=== PATIENT | female | born 1955 | race Caucasian/White ===

== ENCOUNTER → 2018-01-03 15:59 | Outpatient (CLI) | payer MEDICARE, SELFPAY ==
--- NOTE | 2018-01-03 16:14 | DI.US.S_ITS ---
PROCEDURE: US RENAL COMPLETE INDICATIONS: UTI TECHNIQUE: Real-time scanning was performed of the kidneys and bladder, with image documentation. COMPARISON: None. FINDINGS: Kidneys: Kidneys are normal in size. Right kidney measures 11.8 cm long; left kidney measures 11.0 cm long. Right renal cortical thickness is 1.4 cm; left renal cortical thickness is 1.4 cm. Renal cortical echotexture is normal. No hydronephrosis or nephrolithiasis. No suspicious solid mass lesions. Bladder: Pre-void bladder volume is 61 mL. Post-void residual is zero mL. Pre-void images demonstrate no intraluminal masses or stones. On pre-void images, neither of the ureteral jets are noted with color Doppler interrogation. (Of note, ureteral jets may not be detectable in up to 25% of cases due to insufficient differences in specific gravity between ureteral and bladder urine). Miscellaneous: No free pelvic fluid. IMPRESSION: Unremarkable examination as above. No hydronephrosis. Dictated by: Pino Dickinson M.D. on 01/03/2018 at 17:09 Approved by: Pino Dickinson M.D. on 01/03/2018 at 17:10
== END ==
PROVIDERS: PCP Family Medicine; Visit Provider Urology
DX: N39.0 Urinary tract infection, site not specified (principal)
CPT/HCPCS: 76770

== ENCOUNTER 2021-06-26 04:05 | Emergency (ER) | payer MEDICARE, OTHER, SELFPAY ==
[2021-06-26] VITALS (12 sets, daily range): BP systolic 167–199; BP diastolic 80–101; PULSE 100–129; RESP 14–24; TEMP 36.8; O2SAT 93–100; BMI 40.3
--- NOTE | 2021-06-26 04:07 | ED_ITS ---
HPI - SOB/Dyspnea General Chief Complaint: Shortness of Breath/Dyspnea Stated Complaint: sob today Time Seen by Provider: 06/26/21 04:07 Source: patient Limitations: no limitations History of Present Illness HPI Narrative: This is a 65-year-old female comes emergency department with complaint of waking up from sleep with a fast heartbeat, nausea and feeling short of breath. Patient states she does not really feel lightheaded, no syncope. She denies chest pain or pressure. She does feel short of breath particularly with exertion. She states she felt fine when she went to sleep. She has had a little cough since this started which is nonproductive. She denies any abdominal, back or flank pain. She has had some recent diarrhea frequently. No dysuria urgency or frequency. No new swelling in her extremities. Patient has a history of diabetes and is on metformin as well as Lantus daily and omeprazole. She has a history of breast cancer was treated with chemo radiation initially 20 years ago, had recurrence and had bilateral mastectomy 5 years ago. She does note that she has had your PVCs, PACs or paroxysmal atrial tac hycardia. She states she has been to the ER for it remotely in the past never had any in [place] and that she recalls. 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 but have not required any intervention and had a recent echo. Has had hysterectomy, she has both ovaries present. She has had a anastasiya in her right femur as well as knee replacement. No tobacco, alcohol or illicit. Her primary care is Dr. Ruano in school when and she follows with cardiology there as well. Related Data Previous Rx's Medication Instructions Recorded furosemide 40 mg tablet (Lasix) 40 mg PO DAILY #5 tab 06/26/21 Allergies Allergy/AdvReac Type Severity Reaction Status Date / Time prochlorperazine Allergy Unknown Verified 06/26/21 04:27 [From Compazine] Review of Systems Review of Systems ROS Unobtainable: All systems reviewed & are unremarkable except as noted in HPI and below Patient History Social History Smoking Status: Never smoker Exam Narrative Exam Narrative: GENERAL: Alert and oriented x three, female mild distress HEENT: Head normocephalic, atraumatic, EOMI, pupils reactive, face symmetric, moist mucous membranes NECK: Supple, full range of motion CARDIOVASCULAR: Tachycardic but Regular rate and rhythm without murmurs, rubs or gallops. No JVD. No swelling bilateral lower extremities. RESPIRATORY: Breath sounds equal bilaterally, no wheezes rales or rhonchi. No tachypnea accessory muscle use. Speaks in full sentences. ABDOMEN: Soft, nontender. Normoactive bowel sounds all 4 quadrants. No guarding or rebound, rigidity, no mass : No CVA tenderness EXTREMITIES: Normal range of motion, no clubbing or edema. Neurovascularly intact NEUROLOGICAL: Cranial nerves II through XII grossly intact. Moving all extremities. Normal gait. SKIN: Warm, dry, no petechiae, no rashes or lesions. Initial Vital Signs Initial Vital Signs: Vital Signs Temperature 98.3 F 06/26/21 04:05 Pulse Rate 129 H 06/26/21 04:05 Respiratory Rate 24 06/26/21 04:05 Blood Pressure 188/101 H 06/26/21 04:05 Pulse Oximetry 100 06/26/21 04:05 Scores PERC Score Age greater than or equal to 50 years: Yes Heart rate greater than or equal to 100 bpm: Yes Room Air O2 Sat less than 95%: No Unilateral leg swelling: No Recent trauma or surgery: No Hemoptysis: No Prior PE or DVT: No Hormone Use: No Total PERC Score: 2 Course Orders Ordered: Discontinued Medications Albuterol (Albuterol Hfa Prepack) 1 box MISC SEEINSTR ONE Stop: 06/26/21 06:41 Last Admin: 06/26/21 06:54 Dose: 1 box Documented by: [email or web address] Albuterol/Ipratropium (Albuterol/Ipratropium 3 Ml Ampul) 3 ml INH NOW ONE Stop: 06/26/21 04:35 Last Admin: 06/26/21 04:40 Dose: 3 ml Documented by: [email or web address] Sodium Chloride (Normal Saline 0.9%) 1,000 mls @ 1,000 mls/hr IV BOLUS ONE Stop: 06/26/21 05:18 Last Infusion: 06/26/21 05:29 Dose: 0 mls/hr Documented by: Admin: 06/26/21 04:37 Dose: 1,000 mls/hr Documented by: DANILO Methylprednisolone (Methylprednisolone 125 Mg/2 Ml Vial) 125 mg IV NOW ONE Stop: 06/26/21 04:50 Last Admin: 06/26/21 04:58 Dose: 125 mg Documented by: DANILO Ondansetron HCl (Ondansetron 4 Mg/2 Ml Inj) 4 mg IV NOW ONE Stop: 06/26/21 04:20 Last Admin: 06/26/21 04:37 Dose: 4 mg Documented by: DANILO Reevaluation(s) Reevaluation #1: Recheck after duoneb, patient does some like she has some increased movement. She feels better her heart rate actually decreased to the 106 range from 129. Patient states she has never required DuoNebs or breathing treatment she has never had inhalers. She does feel like the breathing treatment was quite helpful. We did review she has never had blood clots. Time: 04:49 Reevaluation #2: Discussed with patient would like to do CT angio, she has is BNP of 1000 range but is not chronically on exam, she responded well to DuoNeb but never had wheeze. She does have some risk factor she has open angiography so will evalu ate a little bit further. Time: 05:18 Reevaluation #3: Patient continues to feel much better after DuoNeb. Fluids were stopped. Angio shows some pulmonary edema changes but no pulmonary emboli. Results were reviewed with patient. She notes she had an echo, there was something wrong with 2 valves but described as mild in that there was not any intervention planned at this time. Asked to take her labs and imaging reports to her next doctor's visit or to talk them over on the phone to review she needs repeat echo or just follow-up. Patient feels quite comfortable and agreeable with this plan she stills feels significantly better. She has had some mild congestion so she may have some reactive airway in addition with a mild viral illness. Time: 06:43 Vital Signs Vital signs: Vital Signs - 8 hr 06/26/21 04:05 06/26/21 04:11 06/26/21 04:12 Temperature 98.3 F Pulse Rate 129 H 125 H Respiratory Rate 24 Blood Pressure 188/101 H 188/101 H Pulse Oximetry 100 100 06/26/21 04:21 06/26/21 04:30 06/26/21 04:40 Temperature Pulse Rate 124 H 121 H 111 H Respiratory Rate 20 18 24 Blood Pressure 199/97 H 174/88 H Pulse Oximetry 96 95 100 06/26/21 05:00 06/26/21 05:36 06/26/21 05:37 Temperature Pulse Rate 111 H 128 H 117 H Respiratory Rate 16 15 Blood Pressure 182/100 H 177/89 H Pulse Oximetry 94 95 96 06/26/21 06:00 06/26/21 06:31 Temperature Pulse Rate 107 H 100 H Respiratory Rate 14 20 Blood Pressure 167/81 H 180/80 H Pulse Oximetry 93 98 MDM - SOB/Dyspnea Lab Data Result diagrams: 06/26/21 04:15 06/26/21 04:15 Labs: Lab Results 06/26/21 06/26/21 06/26/21 Range/Units 04:15 04:15 04:15 WBC 7.8 (4.5-11.0) X10^3/uL RBC 4.73 (4.0-5.2) X10^6/uL Hgb 13.5 (12.0-16.0) g/dL Hct 40.7 (36-46) % MCV 86.1 (80-100) fL MCH 28.5 (26-34) PG MCHC 33.1 (30-36) % RDW 14.2 (11.6-14.8) % Plt Count Not Reportable Neut % (Auto) 55.3 (50-75) % Lymph % (Auto) 32.7 (25-40) % [place] % (Auto) 7.1 (3-14) % Eos % (Auto) 3.7 (2-4) % Baso % (Auto) 1.2 (0-2) % Neut # (Auto) 4300 (9371-4199) /uL Lymph # (Auto) 2500 (3011-0156) /uL [place] # (Auto) 600 (0-900) /uL Eos # (Auto) 300 (0-450) /uL Baso # (Auto) 100 (0-100) /uL Platelet Estimate Adequate on smear RBC Morphology Normal morphology PT (10.1-12.7) SECONDS INR (0.9-1.3) APTT (26.4-36.2) SECONDS D-Dimer (<230) ng/mL Sodium 140 (137-145) mmol/L Potassium 4.2 (3.4-5.1) mmol/L Chloride 107 (98-107) mmol/L Carbon Dioxide 24 (22-32) mmol/L BUN 15 (7-17) mg/dL Creatinine 0.66 (0.52-1.04) mg/dL Estimated GFR > 60.0 (>60) mL/min BUN/Creatinine Ratio 22.7 H (6-22) Glucose 147 H (80-110) mg/dL Calcium 8.7 (8.4-10.2) mg/dL Magnesium 1.7 (1.6-2.3) mg/dL Total Creatine Kinase 35 (30-135) U/L CK-MB (CK-2) TNP CK-MB (CK-2) Rel Index TNP Troponin I < 0.012 (0.01-0.034) ng/mL NT-Pro-B Natriuret Pep (<125) pg/mL TSH 4.19 (0.47-4.68) uIU/mL SARS-CoV-2 (PCR) (Negative) 06/26/21 06/26/21 06/26/21 Range/Units 04:15 04:15 04:15 WBC (4.5-11.0) X10^3/uL RBC (4.0-5.2) X10^6/uL Hgb (12.0-16.0) g/dL Hct (36-46) % MCV (80-100) fL MCH (26-34) PG MCHC (30-36) % RDW (11.6-14.8) % Plt Count Neut % (Auto) (50-75) % Lymph % (Auto) (25-40) % [place] % (Auto) (3-14) % Eos % (Auto) (2-4) % Baso % (Auto) (0-2) % Neut # (Auto) (7501-5883) /uL Lymph # (Auto) (6730-7797) /uL [place] # (Auto) (0-900) /uL Eos # (Auto) (0-450) /uL Baso # (Auto) (0-100) /uL Platelet Estimate RBC Morphology PT 9.5 L (10.1-12.7) SECONDS INR 0.9 (0.9-1.3) APTT 17 L (26.4-36.2) SECONDS D-Dimer 220 (<230) ng/mL Sodium (137-145) mmol/L Potassium (3.4-5.1) mmol/L Chloride (98-107) mmol/L Carbon Dioxide (22-32) mmol/L BUN (7-17) mg/dL Creatinine (0.52-1.04) mg/dL Estimated GFR (>60) mL/min BUN/Creatinine Ratio (6-22) Glucose (80-110) mg/dL Calcium (8.4-10.2) mg/dL Magnesium (1.6-2.3) mg/dL Total Creatine Kinase (30-135) U/L CK-MB (CK-2) CK-MB (CK-2) Rel Index Troponin I (0.01-0.034) ng/mL NT-Pro-B Natriuret Pep 1000 H (<125) pg/mL TSH (0.47-4.68) uIU/mL SARS-CoV-2 (PCR) (Negative) 06/26/21 Range/Units 04:35 WBC (4.5-11.0) X10^3/uL RBC (4.0-5.2) X10^6/uL Hgb (12.0-16.0) g/dL Hct (36-46) % MCV (80-100) fL MCH (26-34) PG MCHC (30-36) % RDW (11.6-14.8) % Plt Count Neut % (Auto) (50-75) % Lymph % (Auto) (25-40) % [place] % (Auto) (3-14) % Eos % (Auto) (2-4) % Baso % (Auto) (0-2) % Neut # (Auto) (1848-4655) /uL Lymph # (Auto) (3597-9671) /uL [place] # (Auto) (0-900) /uL Eos # (Auto) (0-450) /uL Baso # (Auto) (0-100) /uL Platelet Estimate RBC Morphology PT (10.1-12.7) SECONDS INR (0.9-1.3) APTT (26.4-36.2) SECONDS D-Dimer (<230) ng/mL Sodium (137-145) mmol/L Potassium (3.4-5.1) mmol/L Chloride (98-107) mmol/L Carbon Dioxide (22-32) mmol/L BUN (7-17) mg/dL Creatinine (0.52-1.04) mg/dL Estimated GFR (>60) mL/min BUN/Creatinine Ratio (6-22) Glucose (80-110) mg/dL Calcium (8.4-10.2) mg/dL Magnesium (1.6-2.3) mg/dL Total Creatine Kinase (30-135) U/L CK-MB (CK-2) CK-MB (CK-2) Rel Index Troponin I (0.01-0.034) ng/mL NT-Pro-B Natriuret Pep (<125) pg/mL TSH (0.47-4.68) uIU/mL SARS-CoV-2 (PCR) Negative (Negative) Imaging Data Chest x-ray: My Impression: CHF Radiologist's Impression: Borderline cardiomegaly. Minor prominence interstitial markings bilaterally suggesting low-grade interstitial edema fibrotic lung changes. CT scan - chest: Radiologist's Impression: Mild mediastinal lymphadenopathy. Negative for pulmonary emboli. Borderline left ventricular enlargement. Low-grade interstitial edema compatible with low- grade CHF. Mild subcarinal lymphadenopathy. ECG Data Attestation: I personally reviewed and interpreted this ECG as follows: Prior ECG tracings: not available for review Interpretation: Sinus tach, right bundle, rate of 120, NE 136 QRS 142 QTC of 460. No acute ST elevation or depression noted. No priors for comparison. MDM Narrative Medical decision making narrative: This is a 65-year-old female comes emergency department complaint of sudden onset shortness of breath who is tachycardic, she is not hypotensive or hypoxic. EKG shows right bundle-branch block. No priors for comparison and patient is unsure if she has had these on prior EKGs. Chest x-ray shows possible CHF, BNP is a 1000, platelets are clumped on CBC and are not reportable but appear to be appropriate number with discussion with lab. Troponin is negative with normal D- dimer but patient is high risk with prior cancer, radiation to the chest and recurrent cancer 5 years ago. Patient had some decreased aeration of lungs but no wheezing, she did have improvement of sensation with DuoNeb but no new wheezing or change other than some improved aeration. Feels appropriate to evaluate this patient more fully with a right bundle-branch block and elevated BNP for pulmonary emboli with her risk factors. CTA does not show large pulmonary emboli. After discussion with patient she had an echo somewhat recently. Patient states that she was told to valve have a mild but she did require any intervention. Asked to discuss this with her primary in conjunction with her lab findings and CT findings today whether not that would adjust any of her treatment. She did seem to be very responsive to DuoNeb she has not had any Lasix and had resolution of her symptoms. There may be a reactive airway component was given albuterol inhaler in addition but not started on prednisone today. COVID swab was negative. All questions answered patient feels quite comfortable with this plan. Discharge Plan Departure Patient Disposition: Home Clinical Impression: CHF (congestive heart failure) Instructions: DI for Heart Failure Activity Restrictions/Additional Instructions: Follow up with your physician for recheck. A copy of your labs and imaging are included to share with your physician, have them review this with your recent ECHO results to see if they need to adjust any management. You responded extremely well to breathing treatment here in the department. You can use albuterol 2-4 puffs every 4 hours as needed for shortness of breath or wheeze. Your labs do show an elevation in your BNP. I would recommend a short course of Lasix or a diuretic. Prescription sent to [facility] in [place]. Please return for fevers, new or worsening chest pain or shortness of breath, persistent vomiting, passing out, new swelling in your extremities or other new or concerning symptoms. Prescriptions: New furosemide [Lasix] 40 mg tablet 40 mg PO DAILY Qty: 5 0RF
--- NOTE | 2021-06-26 04:19 | DI.RAD.S_ITS ---
PROCEDURE: XR CHEST 1V INDICATIONS: fast heart beat, short of breath TECHNIQUE: One view of the chest was acquired. COMPARISON: [facility], CR, XR CHEST 1 VIEW, 03/04/2017, 8:04. [facility], CT, CT ANGIO CHEST PE PROTOCOL, 06/26/2021, 5:19. FINDINGS: Surgical changes and devices: Bilateral mastectomy change can be seen. Bilateral axillary clips are seen. Lungs and pleura: An incomplete inspiratory result is noted, causing a crowded appearance to the lung markings. Mild generalized interstitial prominence can be seen. No focal infiltrates are seen. No pneumothorax or significant pleural effusions are seen. Mediastinum: Mediastinal contours appear normal. Heart size is at the upper limits of normal for portable technique normal. Bones and chest wall: No suspicious bony lesions. Age-appropriate bony degenerative changes are seen. Overlying soft tissues appear unremarkable. IMPRESSION: Heart size is near the upper limits of normal. Mild generalized interstitial prominence can be seen. Please consider early CHF. If clinically appropriate, a short-term followup chest series (with PA and lateral views) performed in deep inspiration is suggested for further evaluation. Postoperative and degenerative changes are seen. Note: No significant discrepancy from the preliminary report. Dictated by: Kenny Mcpherson M.D. on 06/26/2021 at 8:26 Approved by: Kenny Mcpherson M.D. on 06/26/2021 at 8:28
[2021-06-26 04:36] LABS: INR 0.9 (0.9-1.3); Prothrombin Time 9.5 SECONDS (10.1-12.7)
[2021-06-26] MEDS: ONDANSETRON 4 MG/2 ML INJ IV (04:37)
[2021-06-26] MEDS: SODIUM CHLORIDE 0.9% 1,000 ML 1000 ML IV (04:37)
[2021-06-26 04:39] LABS: PTT Partial Thromboplastin Tim 17 SECONDS (26.4-36.2)
[2021-06-26] MEDS: ALBUTEROL/IPRATROPIUM 3 ML AMPUL INH (04:40)
[2021-06-26 04:41] LABS: BUN Creatinine Ratio 22.7 (6-22); Blood Urea Nitrogen 15 mg/dL (7-17); Calcium 8.7 mg/dL (8.4-10.2); Carbon Dioxide 24 mmol/L (22-32); Chloride 107 mmol/L (98-107); Creatine Kinase 35 U/L (30-135); Estimated Glomerular Filt Rate > 60.0 mL/min (>60); Glucose 147 mg/dL (80-110); HEMOLYSIS 16 (0-50); Magnesium 1.7 mg/dL (1.6-2.3); Potassium 4.2 mmol/L (3.4-5.1); Sodium 140 mmol/L (137-145)
[2021-06-26 04:50] LABS: Eosinophils Percent Auto 3.7 % (2-4); Hematocrit 40.7 % (36-46); Hemoglobin 13.5 g/dL (12.0-16.0); Lymphocytes Percent Auto 32.7 % (25-40); Mean Corpuscular HGB Conc 33.1 % (30-36); Mean Corpuscular Hemoglobin 28.5 PG (26-34); Mean Corpuscular Volume 86.1 fL (80-100); Monocytes Percent Auto 7.1 % (3-14); Neutrophils Percent Auto 55.3 % (50-75); Red Blood Cell Count 4.73 X10^6/uL (4.0-5.2); Red Cell Distribution Width 14.2 % (11.6-14.8); White Blood Cell Count 7.8 X10^3/uL (4.5-11.0)
[2021-06-26 04:51] LABS: Add Manual Diff / Slide Review SLIDE REVIEW; Basophils Absolute Auto 100 /uL (0-100); Basophils Percent Auto 1.2 % (0-2); D Dimer 220 ng/mL (<230); Eosinophils Absolute Auto 300 /uL (0-450); Lymphocytes Absolute Auto 2500 /uL (1100-4500); Monocytes Absolute Auto 600 /uL (0-900); Neutrophils Absolute Auto 4300 /uL (1500-7000)
[2021-06-26 04:52] LABS: Troponin I < 0.012 ng/mL (0.01-0.034)
[2021-06-26] MEDS: methylPREDNISolone 125 MG/2 ML VIAL IV (04:58)
[2021-06-26 05:01] LABS: COVID19 -Nasal RAPID Negative (Negative)
[2021-06-26 05:03] LABS: NT-proBNP (BNP-Adult 18+) 1000 pg/mL (<125)
--- NOTE | 2021-06-26 05:07 | DI.CT.S_ITS ---
PROCEDURE: CT ANGIO CHEST PE PROTOCOL INDICATIONS: sudden onset shortness of breath, hx radiation to chest for lung CA TECHNIQUE: After the administration of intravenous contrast, 2 mm thick sections acquired from the pulmonary apices to the posterior costophrenic angles. 3-dimensional maximum intensity projection (MIP) coronal and sagittal reformats were then acquired through the thorax. For radiation dose reduction, the following was used: automated exposure control, adjustment of mA and/or kV according to patient size. COMPARISON: [facility], CR, XR CHEST 1V, 06/26/2021, 4:51. [facility], CT, CT ABDOMEN PELVIS WITH CONTRAST, 12/19/2018, 17:40. FINDINGS: Image quality: Excellent. Pulmonary arteries: Pulmonary arteries are normal in size, and demonstrate no intraluminal filling defects to suggest central pulmonary embolism. Lungs and pleura: Lungs are clear. No pleural effusions or pneumothorax. Central and peripheral airways are patent. Mediastinum: Heart size is at the upper limits of normal, without pericardial effusion. There is an enlarged subcarinal lymph node seen measuring 2.5 x 1.5 cm. Additional smaller enlarged mediastinal lymph nodes are seen. Thoracic aorta is normal in caliber and enhancement. 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 This is considered to be a developmental variant of no clinical consequence. Esophagus is normal in caliber. There is a small hiatal hernia. Bones and chest wall: Bilateral mastectomy change is seen. No suspicious bony lesions. Ribs and thoracic spine appear intact throughout. Thyroid gland demonstrates no significant abnormality. No axillary or supraclavicular adenopathy. Bilateral axillary lymph node dissection clips can be seen. Abdomen: Cholecystectomy clips are seen. Mild hepatomegaly. No focal liver lesion can be seen. There is mild splenomegaly. The visualized portions of the upper abdominal structures are otherwise unremarkable for imaging technique. IMPRESSION: Negative for pulmonary embolism. Heart size at the upper limits of normal. Enlarged mediastinal lymph nodes are seen. Incidental note is made of: Bilateral mastectomy change Bilateral axillary lymph node dissection clips Bovine type aortic branching pattern Small hiatal hernia Cholecystectomy. Mild hepatomegaly Mild splenomegaly Note: No significant discrepancy from the preliminary report. Dictated by: Kenny Mcpherson M.D. on 06/26/2021 at 8:30 Approved by: Kenny Mcpherson M.D. on 06/26/2021 at 8:35
--- NOTE | 2021-06-26 05:12 | PC.NURSE ---
IV fluids stopped per DR Grider verbal order.
[2021-06-26 05:46] LABS: Platelet Estimate Adequate on smear; RBC Morphology Normal Morphology; Thyroid Stimulating Hormone 4.19 uIU/mL (0.47-4.68)
[2021-06-26] MEDS: ALBUTEROL HFA PREPACK 1 BOX MISC (06:54)
== END 2021-06-26 07:30 | disposition home or self-care (01) ==
PROVIDERS: Emergency Provider Emergency Medicine
DX: I50.9 Heart failure, unspecified (principal); Z20.822 Contact with and (suspected) exposure to COVID-19; R00.0 Tachycardia, unspecified; R03.0 Elevated blood-pressure reading, without diagnosis of hypertension
CPT/HCPCS: 36415; 71045; 71275; 80048; 82550; 83735; 83880; 84443; 84484; 85025; 85379; 85610; 85730; 87635; 93005; 93010; 94640; 96361; 96374; 96375; 99284; 99285; C9803; J2405; J2930; Q9967

== ENCOUNTER → 2023-12-05 07:27 | Outpatient (CLI) | payer MEDICARE, OTHER, SELFPAY | PROVIDERS: Visit Provider Physician Assistant Surgical | DX: R30.0 Dysuria (principal) | CPT/HCPCS: 87077; 87086 ==